=== PATIENT | female | born 2000 | race Caucasian/White ===

== ENCOUNTER 2018-05-08 04:53 | Emergency (ER) | payer OTHER ==
[2018-05-08 07:42] VITALS: BP 129/87
--- NOTE | 2018-05-08 08:06 | ER Document Report ---
ED Medical Screen (RME) - General Chief Complaint: Abdominal Pain Stated Complaint: ABDOMINAL PAIN Time Seen by Provider: 05/08/18 08:02 Mode of Arrival: Ambulatory Information source: Patient Notes: Patient presents emergency department with complaints of spotting, abdominal pelvic cramping and bleeding since December. Patient reports she had one depo shot in December. She reports symptoms have becoming worse for the past few weeks. She denies fever vomiting diarrhea probably reports some nausea. - Related Data Allergies/Adverse Reactions: No Known Allergies Allergy (Unverified 05/08/18 04:56) Physical Exam - Vital signs Vitals: Temp Pulse BP Pulse Ox 97.9 F 99 116/56 L 99 05/08/18 05:02 05/08/18 05:02 05/08/18 05:02 05/08/18 05:02 Course - Vital Signs Vital signs: Temp Pulse Resp BP Pulse Ox 98.4 F 92 18 129/87 H 97 05/08/18 07:41 05/08/18 07:41 05/08/18 07:41 05/08/18 07:41 05/08/18 07:41
[2018-05-08 09:50] LABS: ABSOLUTE BASOPHILS # (AUTO) 0.1 10^3/uL (0.0-0.2); ABSOLUTE EOSINOPHILS # (AUTO) 0.1 10^3/uL (0.0-0.6); ABSOLUTE LYMPHOCYTES (AUTO) 3.2 10^3/uL (0.5-4.7); ABSOLUTE MONOCYTES (AUTO) 0.6 10^3/uL (0.1-1.4); BASOPHILS % (AUTO) 0.6 % (0-2); EOSINOPHILS % (AUTO) 1.4 % (0-6); HEMATOCRIT 40.2 % (36.0-47.0); HEMOGLOBIN 13.6 g/dL (12.0-15.5); LYMPHOCYTES % (AUTO) 39.7 % (13-45); MEAN CORPUSCULAR HEMOGLOBIN 28.7 pg (27.0-33.4); MEAN CORPUSCULAR HGB CONC 33.8 g/dL (32.0-36.0); MEAN CORPUSCULAR VOLUME 85 fl (80-97); MONOCYTES % (AUTO) 7.9 % (3-13); PLATELET COUNT 274 10^3/uL (150-450); RED BLOOD COUNT 4.74 10^6/uL (3.72-5.28); RED CELL DISTRIBUTION WIDTH 12.8 % (11.5-14.0); SEGMENTED NEUTROPHILS % (AUTO) 50.4 % (42-78); TOTAL CELLS COUNTED % (AUTO) 100 %
[2018-05-08 09:55] LABS: APPEARANCE,URINE CLOUDY; BILIRUBIN,URINE NEGATIVE (NEGATIVE); COLOR,URINE YELLOW; GLUCOSE, URINE NEGATIVE (NEGATIVE); KETONES,URINE NEGATIVE (NEGATIVE); LEUKOCYTE ESTERASE,URINE MODERATE (NEGATIVE); NITRITE,URINE NEGATIVE (NEGATIVE); PROTEIN,URINE NEGATIVE (NEGATIVE); URINE SPECIFIC GRAVITY 1.006
[2018-05-08 10:15] LABS: ALANINE AMINOTRANSFERASE 16 U/L (9-52); ALBUMIN 4.5 g/dL (3.5-5.0); ALKALINE PHOSPHATASE 46 U/L (38-126); ANION GAP 12 (5-19); ASPARTATE AMINO TRANSFERASE 15 U/L (14-36); BILIRUBIN,DIRECT 0.3 mg/dL (0.0-0.4); BILIRUBIN,TOTAL 0.7 mg/dL (0.2-1.3); BLOOD UREA NITROGEN 6 mg/dL (7-20); CALCIUM 9.7 mg/dL (8.4-10.2); CARBON DIOXIDE 23 mmol/L (22-30); CHLORIDE 106 mmol/L (98-107); GLUCOSE 90 mg/dL (75-110); SODIUM 140.8 mmol/L (137-145); TOTAL PROTEIN 7.7 g/dL (6.3-8.2)
[2018-05-08 12:41] LABS: EPITHELIALS (WET MOUNT) 3+ EPITHELIALS SEEN; RBCS (WET MOUNT) 3+ RBCS SEEN; T.VAGINALIS (WET MOUNT) NO TRICHOMONAS SEEN; WBCS (WET MOUNT) 1+ WBCS SEEN; YEAST (WET MOUNT) NO YEAST SEEN
[2018-05-08 15:25] LABS: CHLAM PCR DETECTED (NOT DETECT); GON PCR NOT DETECTED (NOT DETECT)
[2018-05-08] MEDS ORDERED: AZITHROMYCIN 250 MG TABLET PO ONE (15:52)
--- NOTE | 2018-05-08 16:03 | ER Document Report ---
ED GI/ - General Chief Complaint: Abdominal Pain Stated Complaint: ABDOMINAL PAIN Time Seen by Provider: 05/08/18 08:02 Mode of Arrival: Ambulatory Information source: Patient, Friend Notes: Patient is a 18-year-old female comes emergency room complaining of vaginal bleeding and discharge. Patient states that she started with Depo-Provera back in December and since that time she has continued to bleed. [id number] has a history of the patient states that is gotten so bad lately that if she is even having pain with intercourse. By she is here with her boyfriend. They both deny any outside activities. She also states that before the Depakote she had this discharge it was pretty bad she had the double shot it went away and then it came back. Patient states that she got this [facility]. Her pain she complains of a suprapubic mostly. - HPI Patient complains to provider of: Abdominal pain, Vaginal bleeding, Vaginal discharge, Vaginal pain Onset: Other - 5 months Timing/Duration: Gradual Quality of pain: Achy, Burning, Sharp Severity at maximum: Moderate Severity in ED: Moderate Pain Level: 3 Location: Suprapubic, Pelvis, Vaginal Adult Front & Back Diagram: 1 - Area of discomfort Vaginal bleeding (Compared to normal period): Spotting, Similar Menstrual period history: Abnormal LMP: Not sure when last period was because of doubtful : 0 Sexual history: Active, Unprotected intercourse, Depo. denies: STD exposure, Condoms Associated symptoms: Dysuria, Painful intercourse, Vaginal discharge Exacerbated by: Denies Relieved by: Denies Similar symptoms previously: Yes Recently seen / treated by doctor: Yes - Related Data Allergies/Adverse Reactions: No Known Allergies Allergy (Unverified 05/08/18 04:56) Past Medical History - General Information source: Patient, Friend - Social History Smoking Status: Never Smoker Chew tobacco use (# tins/day): No Smoking Education Provided: No Frequency of alcohol use: None Drug Abuse: None Lives with: Spouse/Significant other, Friend Family History: Reviewed & Not Pertinent Patient has suicidal ideation: No Patient has homicidal ideation: No Renal/ Medical History: Denies: Hx Peritoneal Dialysis Review of Systems - Review of Systems Constitutional: No symptoms reported EENT: No symptoms reported Cardiovascular: No symptoms reported Respiratory: No symptoms reported Gastrointestinal: No symptoms reported, Abdominal pain Genitourinary: No symptoms reported Female Genitourinary: No symptoms reported, Vaginal discharge, Vaginal bleeding , Painful intercourse Musculoskeletal: No symptoms reported Skin: No symptoms reported Hematologic/Lymphatic: No symptoms reported Neurological/Psychological: No symptoms reported -: Yes All other systems reviewed and negative Physical Exam - Vital signs Vitals: Temp Pulse BP Pulse Ox 97.9 F 99 116/56 L 99 05/08/18 05:02 05/08/18 05:02 05/08/18 05:02 05/08/18 05:02 Interpretation: Normal - Notes Notes: Patient is a healthy-appearing very slender frame 18-year-old female. She does not appear cachectic. She is in no apparent distress on physical exam. - General General appearance: Appears well, Alert - HEENT Head: Normocephalic, Atraumatic Eyes: Normal Conjunctiva: Normal - Respiratory Respiratory status: No respiratory distress Chest status: Nontender Breath sounds: Normal. No: Rales, Rhonchi, Stridor, Wheezing Chest palpation: Normal - Cardiovascular Rhythm: Regular Heart sounds: Normal auscultation Murmur: No - Abdominal Inspection: Normal Distension: No distension. No: Tympanitic Bowel sounds: Hyperactive Tenderness: Tender, Other - Examination of the abdomen shows the 4 quadrants to be having hypoactive bowel sounds. There is some moderate tympany to percussion. There is no point specific tenderness in the abdominal area that I can find.. No: McBurney's point, Patterson's sign, Guarding, Rebound Organomegaly: No organomegaly - Genitourinary External exam: Normal, Other - Examination during pelvic shows the external genitalia to be normal appearance. No blood is noted at this time. Speculum exam: Normal, Cervix closed, Vaginal discharge, Other - Examination of the vaginal vault and cervix shows them to be covered slightly and a mucoid bloody discharge. There is seepage of some blood from the office. Patient tells me she has never been but the os itself is stretched. No other acute findings. Vaginal bleeding: Mild Bimanuel exam: Cervical motion tender, Adnexal tenderness, Other - Bimanual exam shows there is some mild tenderness to cervical palpation. There is also some right adnexal tenderness to palpation. Course - Re-evaluation Re-evalutation: 05/08/18 16:08 Patient was found to have chlamydia. I went into the room where she and her boyfriend were laying on the cot together. I asked her since she was 18 years old and I had something very important to discuss with her if she would like anyone to leave the room she said it would be okay for the person to remain in the room and I informed her that she had chlamydia. I explained the patient that this is a sexually transmitted disease and I do not know how it could come to be that she had it could have been there for a while like she had informed me that the discharge was there before her dapple in December of this past year. I have informed her that both parties need to be treated but he would have to check and be treated as well. She has elected to be treated herself and understands that he must be treated as well. - Vital Signs Vital signs: Temp Pulse Resp BP Pulse Ox 98.4 F 92 18 129/87 H 97 05/08/18 07:41 05/08/18 07:41 05/08/18 07:41 05/08/18 07:41 05/08/18 07:41 - Laboratory Result Diagrams: 05/08/18 09:20 05/08/18 09:20 Laboratory results interpreted by me: 05/08/18 05/08/18 05/08/18 09:20 09:20 13:34 BUN 6 L Urine Blood LARGE H Urine Urobilinogen 2.0 H Ur Leukocyte Esterase MODERATE H Chlamydia DNA (PCR) DETECTED H Discharge - Discharge Clinical Impression: Chlamydia Condition: Stable Disposition: HOME, SELF-CARE Instructions: Azithromycin ([facility]), Chlamydia ([facility]), [facility] ([facility]) Additional Instructions: As we have discussed both parties need to be treated before you have any more sexual intercourse. Your actually contagious for up to 1 week after taking the azithromycin. He is to be careful know that if they discharged comes back you might have a checked again. With all that it is still important for you to follow-up with your [facility] who prescribed you the Depo-Medrol and discussed with them any other findings on your next Pap smear. You can return to ER for any concerns or problems.
== END 2018-05-08 16:22 | disposition home or self-care (01) ==
LOC: ER 04:53
DX: A56.2 Chlamydial infection of genitourinary tract, unspecified (principal); R10.9 Unspecified abdominal pain; N93.8 Other specified abnormal uterine and vaginal bleeding; N89.8 Other specified noninflammatory disorders of vagina
CPT/HCPCS: 36415; 80053; 81001; 84702; 85025; 87086; 87088; 87186; 87210; 87491; 87591; 99284

== ENCOUNTER 2019-03-10 18:29 | Emergency (ER) | payer OTHER ==
--- NOTE | 2019-03-10 19:46 | ER Document Report ---
HPI - HPI Time Seen by Provider: 03/10/19 19:45 Pain Level: 0 Notes: 19-year-old female presents the ED for complaints of foreign body in her right ear after cleaning her ear with Q-tip approximately 2 hours ago. Denies any other injury. Denies any drainage from the ear. Denies any pain from ear. Has not tried any [id number] medications. Denies fevers, chills, chest pain,palpitations, shortness of breath, dyspnea, nausea, vomiting, diarrhea, abdominal pain, hematuria,blurred vision, double vision, loss of vision, speech changes, LH, dizziness, syncope, headaches, wheezing, ST, URI, neck pain, rash. - REPRODUCTIVE Reproductive: DENIES: : Past Medical History - General Information source: Patient - Social History Smoking Status: Unknown if Ever Smoked Family History: Reviewed & Not Pertinent Renal/ Medical History: Denies: Hx Peritoneal Dialysis Vertical Provider Document - CONSTITUTIONAL Agree With Documented VS: Yes Exam Limitations: No Limitations Notes: PHYSICAL EXAMINATION: GENERAL: Well-appearing, well-nourished and in no acute distress. HEAD: Atraumatic, normocephalic. EYES: Pupils equal round and reactive to light, extraocular movements intact, conjunctiva are normal. ENT: Nares patent, oropharynx clear without exudates. Moist mucous membranes. Noted partial end of cotton Q-tip in the right external canal. TM intact, no bulging erythematous TM. NECK: Normal range of motion, supple without lymphadenopathy LUNGS: Breath sounds clear to auscultation bilaterally and equal. No wheezes rales or rhonchi. HEART: Regular rate and rhythm without murmurs ABDOMEN: Soft, nontender, nondistended abdomen. No guarding, no rebound. No masses appreciated. Female : deferred Musculoskeletal: Normal range of motion, no pitting or edema. No cyanosis. NEUROLOGICAL: Cranial nerves grossly intact. Normal speech, normal gait. Normal sensory, motor exams PSYCH: Normal mood, normal affect. SKIN: Warm, Dry, normal turgor, no rashes or lesions noted. - INFECTION CONTROL TRAVEL OUTSIDE OF THE [place] IN LAST 30 DAYS: No Course - Re-evaluation Re-evalutation: 03/10/19 19:56 Afebrile vital stable no distress. Noted foreign body, partial end of Q-tip in the left external canal. Ear lavage. Do not put foreign bodies in your ear such as a Q-tip for concern that it can break off. follow up with pcp as needed. After performing a Medical Screening Examination, I estimate there is LOW risk for malignant otitis media, mastoiditis, MENINGITIS, or ACUTE CORONARY SYNDROME, thus I consider the discharge disposition reasonable. I have reevaluated this patient multiple times and no significant life threatening changes are noted. The patient and I have discussed the diagnosis and risks, and we agree with discharging home to follow-up on an outpatient basis with the understanding that symptoms and presentations can change. We also discussed returning to the Emergency Department immediately if new or worsening symptoms occur. We have discussed the symptoms which are most concerning (e.g., high fevers, confusion) that necessitate immediate return. - Vital Signs Vital signs: Temp Pulse Resp BP Pulse Ox 98.0 F 96 16 126/83 H 99 03/10/19 18:35 03/10/19 18:35 03/10/19 18:35 03/10/19 18:35 03/10/19 18:35 Discharge - Discharge Clinical Impression: foreign object in ear Condition: Stable Disposition: HOME, SELF-CARE Instructions: Foreign Object in the Ear ([facility]) Additional Instructions: follow up with pcp as needed do not put foreign bodies in ear Return immediately for any new or worsening symptoms. Follow up with primary care provider, call tomorrow to make followup appointment. Prescriptions: Ciprofloxacin HCl/Dexameth [Ciprodex Otic Suspension 7.5 ml Bottle] 4 drop OT BID #1 bottle Referrals: CHEY HOBBS MD [ACTIVE STAFF] - Follow up as needed
[2019-03-10 20:09] VITALS: BP 123/79
== END 2019-03-10 20:25 | disposition home or self-care (01) ==
LOC: ER 18:29
DX: T16.1XXA Foreign body in right ear, initial encounter (principal); X58.XXXA Exposure to other specified factors, initial encounter
CPT/HCPCS: 99282